=== PATIENT | female | born 1955 | race Caucasian/White ===

== ENCOUNTER 2021-01-26 13:00 | Outpatient (RCR) | payer BC | END 2021-01-27 | LOC: PT 13:00 | PROVIDERS: ATTEND Specialist | DX: S43.431A Superior glenoid labrum lesion of right shoulder, initial encounter (principal); S46.011A Strain of muscle(s) and tendon(s) of the rotator cuff of right shoulder, initial encounter ==

== ENCOUNTER → 2021-02-26 | Outpatient (RCR) | payer BC | LOC: PT 01-28 17:01 | PROVIDERS: ATTEND Specialist | DX: S43.431A Superior glenoid labrum lesion of right shoulder, initial encounter (principal); S46.011A Strain of muscle(s) and tendon(s) of the rotator cuff of right shoulder, initial encounter | CPT/HCPCS: 97139 ==

== ENCOUNTER 2021-03-26 13:00 | Outpatient (RCR) | payer BC | END 2021-03-29 | LOC: PT 13:00 | PROVIDERS: ATTEND Specialist | DX: S43.431A Superior glenoid labrum lesion of right shoulder, initial encounter (principal); S46.011A Strain of muscle(s) and tendon(s) of the rotator cuff of right shoulder, initial encounter | CPT/HCPCS: 97139 ==